=== PATIENT | male | born 1995 | race Caucasian/White ===

== ENCOUNTER 2025-05-20 18:59 | Emergency (ER) | payer SELFPAY ==
[~2025-05-20] VITALS: Ht 165.1 cm; Wt 137.0 kg
[2025-05-20 19:10] VITALS: O2SAT 99
[2025-05-20] MEDS ORDERED: LACTATED RINGERS 1,000 ML IV SCH ×2 (20:00)
[2025-05-20] MEDS: SODIUM CHLORIDE 0.9% (SEPSIS BOLUS) IV ONE (20:28)
[2025-05-20 20:30] LABS: BASOPHILS % 1.2 % (0.0-2.0); EOSINOPHILS % 0.4 % (0.0-5.0); HEMATOCRIT. 46.6 % (42.0-52.0); HEMOGLOBIN. 15.2 g/dL (14.0-18.0); LYMPHOCYTES % 13.1 % (20.0-50.0); MEAN PLATELET VOLUME 8.1 fl (7.4-10.4); MONOCYTES % 6.8 % (2.0-8.0); NEUTROPHILS % 78.5 % (40.0-76.0); PLATELET 378 x1000/uL (130-400); RED BLOOD CELL COUNT 5.30 mill/uL (4.7-6.1); RED CELL DISTRIBUTION WIDTH 12.6 % (11.6-14.6)
[2025-05-20] MEDS: PIPERACILLIN/TAZO 3.375G/50ML 50 ML IV ONE (20:30)
[2025-05-20] MEDS: KETOROLAC 15MG/ML VIAL IV ONE (20:30)
[2025-05-20 20:40] LABS: INR 1.0
[2025-05-20 20:45] LABS: CREATININE 0.8 mg/dL (0.6-1.3); UREA NITROGEN BLOOD 8 mg/dL (9-23)
[2025-05-20 20:47] LABS: ASPARTATE AMINOTRANSFERASE 11 IU/L (<34); BILIRUBIN DIRECT 0.2 mg/dL (<=3.0); BILIRUBIN TOTAL 0.9 mg/dL (0.1-1.0); PROTEIN TOTAL 7.9 g/dL (6.0-8.3)
[2025-05-20] MEDS: VANCOMYCIN 1G PREMIX 200 ML IV ONE (21:12)
[2025-05-20] MEDS: ACETAMINOPHEN 500MG TABLET PO ONE (21:13)
[2025-05-20 21:45] VITALS: TEMP 37.3
[2025-05-20 22:42] LABS: CLARITY URINE CLEAR (CLEAR); COLOR URINE YELLOW (YELLOW); GLUCOSE URINE 3+ (NEGATIVE); KETONES URINE 3+ (NEGATIVE); LEUKOCYTE ESTERASE URINE 1+ (NEGATIVE); NITRITE URINE NEGATIVE (NEGATIVE); OCCULT BLOOD URINE 1+ (NEGATIVE); PH URINE 5.5 (4.5-8.0); PROTEIN URINE TRACE (NEGATIVE); SPECIFIC GRAVITY URINE 1.040 (1.005-1.030); UROBILINOGEN URINE 0.2 E.U./dL (0.2-1.0)
[2025-05-20 23:03] LABS: WBC URINE TNTC /hpf (0-2)
[2025-05-20 23:04] LABS: BACTERIA URINE 1+; SQUAMOUS EPITHELIAL CELL URINE 2+ /lpf (RARE/1+); YEAST URINE 2+
[2025-05-20] MEDS ORDERED: SULF1TAB48 MT (23:21)
[2025-05-20] MEDS ORDERED: CEPH500C2 MT (23:21)
[2025-05-20 23:25] VITALS: BP 130/75; PULSE 95; RESP 12; O2SAT 99
[2025-05-21] MEDS ORDERED: IOHEXOL-300 100 ML BOTTLE ONE
== END 2025-05-20 23:40 | disposition home or self-care (01) ==
LOC: ER 18:59 → CMPBEDREQ 05-21 03:16
DX: L02.31 Cutaneous abscess of buttock (principal); L03.317 Cellulitis of buttock; E11.9 Type 2 diabetes mellitus without complications; Q63.8 Other specified congenital malformations of kidney; Z90.89 Acquired absence of other organs; Z79.899 Other long term (current) drug therapy; Z98.890 Other specified postprocedural states
CPT/HCPCS: 99285; 74177; 96365; 71045; 96367; 96375; 80076; 80048; 81003; 82962; 83605; 83735; 85025; 85610; 87040; 87086; 36415; 84145; 93005; J1885; Q9967; J2543; J3373; J7030